=== PATIENT | female | born 1945 | race Caucasian/White ===

== ENCOUNTER 2019-06-05 17:43 | Emergency (ER) | payer MEDICARE, OTHER ==
[~2019-06-05] VITALS: Ht 165.1 cm; Wt 113.4 kg
[2019-06-05] MEDS ORDERED: EUTHYROX50 MC1 PO (21:36)
[2019-06-05] MEDS ORDERED: DULOXETINE HCL PO (21:36)
[2019-06-05] MEDS ORDERED: ATENOLOL25 MG PO (21:36)
[2019-06-05] MEDS ORDERED: TRAZ50 PO (21:36)
[2019-06-05] MEDS ORDERED: XANAX0.25 MG PO (21:36)
[2019-06-05] MEDS ORDERED: Zoloft100 MG PO (21:37)
[2019-06-05] MEDS ORDERED: ROSUVASTATIN CA10 MG PO (21:37)
[2019-06-05] MEDS ORDERED: Verapamil ER200 MG PO (21:37)
[2019-06-05] MEDS ORDERED: LISI5 PO (21:38)
[2019-06-05] MEDS ORDERED: PANTOPRAZOLE SO40 M2 PO (21:38)
== END 2019-06-05 22:00 | disposition home or self-care (01) ==
LOC: ER 17:43
DX: S01.01XA Laceration without foreign body of scalp, initial encounter (principal); Z88.1 Allergy status to other antibiotic agents; Z88.5 Allergy status to narcotic agent; Z91.048 Other nonmedicinal substance allergy status; M54.5 Low back pain; G89.29 Other chronic pain; W18.30XA Fall on same level, unspecified, initial encounter
CPT/HCPCS: 12001; 99283-25; A9270-GY

== ENCOUNTER → 2021-10-14 | Outpatient (CLI) | payer MEDICARE, OTHER ==
[~2021-10-14] MED LIST: ATENOLOL25 MG PO; DULOXETINE HCL PO; EUTHYROX50 MC1 PO; LISI5 PO; PANTOPRAZOLE SO40 M2 PO; ROSUVASTATIN CA10 MG PO; TRAZ50 PO; Verapamil ER200 MG PO; XANAX0.25 MG PO; Zoloft100 MG PO
[2021-10-14 17:38] LABS: BASOPHILS ABSOLUTE AUTO 0.03 K/mm3 (0.00-0.23); BASOPHILS PERCENT AUTO 0 % (0-2); EOSINOPHILS PERCENT AUTO 1 % (0-6); Hematocrit 40.2 % (33.0-51.0); Hemoglobin 12.7 g/dL (11.5-16.0); IMMATURE GRAN ABSOLUTE AUTO 0.03 K/mm3 (0.00-0.10); IMMATURE GRAN PERCENT AUTO 0 % (0-1); LYMPHOCYTES ABSOLUTE AUTO 2.54 K/mm3 (0.84-5.20); LYMPHOCYTES PERCENT AUTO 26 % (21-46); MONOCYTES ABSOLUTE AUTO 0.79 K/mm3 (0.16-1.47); MONOCYTES PERCENT AUTO 8 % (4-13); Mean Corpuscular HGB 27.7 pg (26.0-34.0); Mean Corpuscular HGB Conc 31.6 g/dL (31.5-36.5); Mean Corpuscular Volume 88 fL (80-100); Mean Platelet Volume 10.2 fL (9.1-12.4); NEUTROPHILS ABSOLUTE AUTO 6.29 K/mm3 (1.96-9.15); NEUTROPHILS PERCENT AUTO 64 % (41-73); Platelet Count 352 K/mm3 (150-400); RDW Coefficient Variation 15.7 % (11.7-14.2); RDW Standard Deviation 49.8 fL (35.1-46.3); Red Blood Cell Count 4.59 M/mm3 (3.80-5.20); White Blood Cell Count 9.78 K/mm3 (4.00-11.30)
[2021-10-14 18:43] LABS: CHOL/HDL RATIO 5.8; Cholesterol 260 mg/dL (50-200); Ferritin, Serum 6 ng/mL (8-252); HDL Cholesterol 45 mg/dL (>39); Iron Serum 60 ug/dL (50-170); LDL/HDL RATIO 3.8; Low Density Lipoprotein Chol 171 mg/dL (0-110); Total Iron Binding Capacity 460 ug/dL (250-450); Triglycerides 221 mg/dL (30-160); Very Low Density Lipoprot Chol 44 mg/dL (6-32)
== END | disposition home or self-care (01) ==
LOC: LAB SHORT 15:13
PROVIDERS: Family Medicine
DX: Z13.6 Encounter for screening for cardiovascular disorders (principal); E53.8 Deficiency of other specified B group vitamins; R53.83 Other fatigue
CPT/HCPCS: 80061; 82607; 82728; 82746; 83540; 83550; 85025

== ENCOUNTER 2024-10-14 12:22 | Emergency (ER) | payer MEDICARE, OTHER ==
[~2024-10-14] VITALS: Ht 160 cm; Wt 104.3 kg
[2024-10-14] MEDS ORDERED: Methyl Salicylate/Menth/Camph 57 GM TUBE TOP ONE (12:55)
[2024-10-14] MEDS ORDERED: FENO48 PO (17:55)
[2024-10-14] MEDS ORDERED: Cyclobenzaprine5 MG PO (17:56)
[2024-10-14] MEDS ORDERED: OXYB5 PO (17:56)
[2024-10-14] MEDS ORDERED: ESCI20 PO (17:56)
[2024-10-14] MEDS ORDERED: Isosorbide Mono30 MG PO (17:56)
[2024-10-14] MEDS ORDERED: METF500 PO (17:57)
[2024-10-14] MEDS ORDERED: GABA300 PO (17:57)
[2024-10-14] MEDS ORDERED: MERIBIN5 MG PO (17:58)
[2024-10-14] MEDS ORDERED: ESTRADIOL VAG (17:58)
[2024-10-14 19:47] LABS: BASOPHILS ABSOLUTE AUTO 0.02 K/mm3 (0.00-0.23); BASOPHILS PERCENT AUTO 0 % (0-2); EOSINOPHILS ABSOLUTE AUTO 0.03 K/mm3 (0.00-0.68); EOSINOPHILS PERCENT AUTO 0 % (0-6); Hematocrit 29.9 % (33.0-51.0); Hemoglobin 8.7 g/dL (11.5-16.0); IMMATURE GRAN ABSOLUTE AUTO 0.06 K/mm3 (0.00-0.10); IMMATURE GRAN PERCENT AUTO 1 % (0-1); LYMPHOCYTES ABSOLUTE AUTO 2.23 K/mm3 (0.84-5.20); LYMPHOCYTES PERCENT AUTO 22 % (21-46); MONOCYTES ABSOLUTE AUTO 0.90 K/mm3 (0.16-1.47); MONOCYTES PERCENT AUTO 9 % (4-13); Mean Corpuscular HGB Conc 29.1 g/dL (31.5-36.5); Mean Corpuscular Volume 88 fL (80-100); NEUTROPHILS ABSOLUTE AUTO 6.83 K/mm3 (1.96-9.15); NEUTROPHILS PERCENT AUTO 68 % (41-73); NRBC ABSOLUTE 0.00 K/mm3 (0.00-0.02); NRBC Auto 0.0 /100 WBC (0.0-0.2); Platelet Count 373 K/mm3 (150-400); RDW Coefficient Variation 14.9 % (11.7-14.2); RDW Standard Deviation 48.1 fL (35.1-46.3)
[2024-10-14 19:59] LABS: Anion Gap 9.0 mmol/L (3-11); Blood Urea Nitrogen 20.0 mg/dL (8-24); CO2, Blood 24.0 mmol/L (21-32); Calcium, Blood 9.4 mg/dL (8.5-10.1); Chloride, Blood 108.0 mmol/L (98-108); Creatinine, Blood 0.75 mg/dL (0.40-1.00); Glucose, Blood 155.0 mg/dL (70-99); Potassium, Blood 3.7 mmol/L (3.5-5.5); Sodium, Blood 137.0 mmol/L (136-145)
[2024-10-14 20:08] VITALS: BP 141/66
[2024-10-14] MEDS ORDERED: PERCOCET 10-321 EA13 PO (22:21)
[2024-10-14] MEDS ORDERED: OxyCODONE 10/Acetamin 325 TABLET PO ONE (22:25)
[2024-10-14] MEDS ORDERED: RX Prepack 6 Tabs Oxycodone 5mg UD ONE (23:15)
== END 2024-10-14 23:35 | disposition home or self-care (01) ==
LOC: ER 12:22
PROVIDERS: Student in an Organized Health Care Education/Training Program
DX: S32.029A Unspecified fracture of second lumbar vertebra, initial encounter for closed fracture (principal); W18.30XA Fall on same level, unspecified, initial encounter; D64.9 Anemia, unspecified; I10 Essential (primary) hypertension; E03.9 Hypothyroidism, unspecified; E11.40 Type 2 diabetes mellitus with diabetic neuropathy, unspecified; Z88.5 Allergy status to narcotic agent; Z88.1 Allergy status to other antibiotic agents; Z91.048 Other nonmedicinal substance allergy status; Z79.84 Long term (current) use of oral hypoglycemic drugs; Z79.899 Other long term (current) drug therapy; Z79.890 Hormone replacement therapy
CPT/HCPCS: 70450; 71260; 72100; 72125; 74177; 80048; 85025; 99284-25; A9270; Q9967

== ENCOUNTER 2024-11-04 15:10 | Emergency (ER) | payer MEDICARE, OTHER ==
[~2024-11-04] VITALS: Ht 160 cm; Wt 95.2 kg
[~2024-11-04 15:10] MED LIST changes: +Cyclobenzaprine5 MG PO; +ESCI20 PO; +ESTRADIOL VAG; +FENO48 PO; +GABA300 PO; +Isosorbide Mono30 MG PO; +MERIBIN5 MG PO; +METF500 PO; +OXYB5 PO; +PERCOCET 10-321 EA13 PO
[2024-11-04] MEDS ORDERED: Ketorolac Tromethamine 15mg Vial IV ONE (15:45)
[2024-11-04] MEDS ORDERED: Ondansetron HCl 2 MG / ML 2ML Vial IV ONE (15:45)
[2024-11-04 16:02] LABS: BASOPHILS ABSOLUTE AUTO 0.01 K/mm3 (0.00-0.23); BASOPHILS PERCENT AUTO 0 % (0-2); EOSINOPHILS ABSOLUTE AUTO 0.07 K/mm3 (0.00-0.68); EOSINOPHILS PERCENT AUTO 1 % (0-6); Hematocrit 35.8 % (33.0-51.0); Hemoglobin 11.1 g/dL (11.5-16.0); IMMATURE GRAN ABSOLUTE AUTO 0.05 K/mm3 (0.00-0.10); IMMATURE GRAN PERCENT AUTO 1 % (0-1); LYMPHOCYTES ABSOLUTE AUTO 1.46 K/mm3 (0.84-5.20); LYMPHOCYTES PERCENT AUTO 14 % (21-46); MONOCYTES ABSOLUTE AUTO 0.61 K/mm3 (0.16-1.47); MONOCYTES PERCENT AUTO 6 % (4-13); Mean Corpuscular HGB Conc 31.0 g/dL (31.5-36.5); Mean Corpuscular Volume 81 fL (80-100); NEUTROPHILS ABSOLUTE AUTO 8.13 K/mm3 (1.96-9.15); NEUTROPHILS PERCENT AUTO 79 % (41-73); NRBC ABSOLUTE 0.00 K/mm3 (0.00-0.02); NRBC Auto 0.0 /100 WBC (0.0-0.2); Platelet Count 460 K/mm3 (150-400); RDW Coefficient Variation 16.3 % (11.7-14.2); RDW Standard Deviation 46.9 fL (35.1-46.3)
[2024-11-04 16:23] LABS: Alanine Aminotransfer (ALT/SGP 23.0 U/L (12-78); Albumin, Blood 3.6 g/dL (3.4-5.0); Albumin/Globulin Ratio 0.9 (0.8-1.8); Anion Gap 16.0 mmol/L (3-11); Aspartate Aminotrans (AST/SGOT 22.0 U/L (12-37); Bilirubin, Total 1.1 mg/dL (0.1-1.0); Blood Urea Nitrogen 11.0 mg/dL (8-24); CO2, Blood 20.0 mmol/L (21-32); Calcium, Blood 9.9 mg/dL (8.5-10.1); Chloride, Blood 104.0 mmol/L (98-108); Creatinine, Blood 0.74 mg/dL (0.40-1.00); Globulin, Blood 3.8 g/dL (2.2-4.0); Glucose, Blood 154.0 mg/dL (70-99); Potassium, Blood 3.7 mmol/L (3.5-5.5); Sodium, Blood 136.0 mmol/L (136-145); Total Protein, Blood 7.4 g/dL (6.4-8.2)
[2024-11-04 17:35] LABS: Source, Urine Straight Cath
[2024-11-04 17:43] LABS: Bilirubin, Urine Neg (Neg); Color, Urine Yellow (P-Yellow); Glucose Qualitative, Urine Neg (Neg); Ketones, Urine 1+ (Neg); Leukocyte Esterase, Urine 3+ (Neg); Protein, Urine 2+ (Neg); Specific Gravity, Urine 1.010 (1.003-1.022); Urobilinogen, Urine NORM (Normal)
[2024-11-04 17:51] LABS: White Blood Cells, Urine TNTC /hpf (0-5)
[2024-11-04 17:52] LABS: Red Blood Cells, Urine 0-2 /hpf (0-2)
[2024-11-04] MEDS ORDERED: Metoclopramide HCl 5MG / ML 2ML Vial IV ONE (18:10)
[2024-11-04] MEDS ORDERED: HYDROmorphone HCl/Pf 1MG SYR IV ONE (18:10)
[2024-11-04] MEDS ORDERED: NS 1,000 ML IV SCH (18:10)
[2024-11-04] MEDS ORDERED: CefTRIAXone Sodium 1,000 MG in NS 100 ML IV ONE (18:15)
[2024-11-04 18:28] VITALS: BP 160/131
[2024-11-04] MEDS ORDERED: Magnesium Citrate 300 ML BTL PO ONE (19:55)
[2024-11-04] MEDS ORDERED: ONDA4ODT MM (20:07)
[2024-11-04] MEDS ORDERED: CEFP200 PO (20:07)
[2024-11-04] MEDS ORDERED: RX Prepack 2 Tabs Ondansetron ODT 4MG UD ONE (20:10)
== END 2024-11-04 20:35 | disposition home or self-care (01) ==
LOC: ER 15:10
PROVIDERS: Student in an Organized Health Care Education/Training Program
DX: S32.029A Unspecified fracture of second lumbar vertebra, initial encounter for closed fracture (principal); N39.0 Urinary tract infection, site not specified; K59.00 Constipation, unspecified; Z88.5 Allergy status to narcotic agent; Z79.899 Other long term (current) drug therapy; Z79.84 Long term (current) use of oral hypoglycemic drugs; I10 Essential (primary) hypertension; E11.21 Type 2 diabetes mellitus with diabetic nephropathy; X58.XXXA Exposure to other specified factors, initial encounter
CPT/HCPCS: 74177; 80053; 81001; 83690; 85025; 87077; 87086; 87186; 96365-59; 96375; 99283-25; A9270; J0696; J1171; J1885; J2405; J2765; J7030; Q9967

== ENCOUNTER 2024-11-07 16:55 | Emergency (ER) | payer MEDICARE, OTHER ==
[~2024-11-07] VITALS: Ht 162.6 cm; Wt 113.4 kg
[~2024-11-07 16:55] MED LIST changes: +CALAN SR240 M1 PO; +CEFP200 PO; -ESTRADIOL VAG; +ESTRADIOL10 MCG VAG; +ONDA4ODT MM; -OXYB5 PO; +Oxybutynin Chlo15 MG PO; -Verapamil ER200 MG PO
[2024-11-07] MEDS ORDERED: Ondansetron HCl 2 MG / ML 2ML Vial IV PRN (17:05)
[2024-11-07 17:23] LABS: BASOPHILS ABSOLUTE AUTO 0.02 K/mm3 (0.00-0.23); BASOPHILS PERCENT AUTO 0 % (0-2); EOSINOPHILS ABSOLUTE AUTO 0.14 K/mm3 (0.00-0.68); EOSINOPHILS PERCENT AUTO 2 % (0-6); Hematocrit 34.4 % (33.0-51.0); Hemoglobin 10.4 g/dL (11.5-16.0); IMMATURE GRAN ABSOLUTE AUTO 0.04 K/mm3 (0.00-0.10); IMMATURE GRAN PERCENT AUTO 0 % (0-1); LYMPHOCYTES ABSOLUTE AUTO 1.35 K/mm3 (0.84-5.20); LYMPHOCYTES PERCENT AUTO 14 % (21-46); MONOCYTES ABSOLUTE AUTO 0.62 K/mm3 (0.16-1.47); MONOCYTES PERCENT AUTO 7 % (4-13); Mean Corpuscular HGB Conc 30.2 g/dL (31.5-36.5); Mean Corpuscular Volume 83 fL (80-100); NEUTROPHILS ABSOLUTE AUTO 7.21 K/mm3 (1.96-9.15); NEUTROPHILS PERCENT AUTO 77 % (41-73); NRBC ABSOLUTE 0.00 K/mm3 (0.00-0.02); NRBC Auto 0.0 /100 WBC (0.0-0.2); Platelet Count 383 K/mm3 (150-400); RDW Coefficient Variation 16.3 % (11.7-14.2); RDW Standard Deviation 49.1 fL (35.1-46.3)
[2024-11-07 17:38] LABS: Prothrombin Time Results 11.3 Sec (9.7-11.5)
[2024-11-07 18:13] LABS: Alanine Aminotransfer (ALT/SGP 20.0 U/L (12-78); Albumin, Blood 3.7 g/dL (3.4-5.0); Albumin/Globulin Ratio 1.1 (0.8-1.8); Anion Gap 11.0 mmol/L (3-11); Aspartate Aminotrans (AST/SGOT 20.0 U/L (12-37); Bilirubin, Total 0.9 mg/dL (0.1-1.0); Blood Urea Nitrogen 8.0 mg/dL (8-24); CO2, Blood 24.0 mmol/L (21-32); Calcium, Blood 9.8 mg/dL (8.5-10.1); Chloride, Blood 106.0 mmol/L (98-108); Creatinine, Blood 0.74 mg/dL (0.40-1.00); Globulin, Blood 3.4 g/dL (2.2-4.0); Glucose, Blood 140.0 mg/dL (70-99); Potassium, Blood 3.8 mmol/L (3.5-5.5); Sodium, Blood 137.0 mmol/L (136-145); Total Protein, Blood 7.1 g/dL (6.4-8.2)
[2024-11-07] MEDS ORDERED: OXYCODONE-ACET1 EAC2 PO (19:34)
[2024-11-07] MEDS ORDERED: Nitrofurantoin100 M1 PO (19:35)
[2024-11-07 20:00] VITALS: BP 246/108
[2024-11-07] MEDS ORDERED: Ondansetron HCl 2 MG / ML 2ML Vial IV ONE (20:20)
[2024-11-07] MEDS ORDERED: PROBIOTIC1 EA14 PO (20:34)
== END 2024-11-07 21:03 | disposition home or self-care (01) ==
LOC: ER 16:55
PROVIDERS: Emergency Medicine
DX: K52.1 Toxic gastroenteritis and colitis (principal); T36.95XA Adverse effect of unspecified systemic antibiotic, initial encounter; E03.9 Hypothyroidism, unspecified; I10 Essential (primary) hypertension; E11.40 Type 2 diabetes mellitus with diabetic neuropathy, unspecified; Z88.1 Allergy status to other antibiotic agents; Z88.5 Allergy status to narcotic agent; Z91.048 Other nonmedicinal substance allergy status; Z79.899 Other long term (current) drug therapy
CPT/HCPCS: 80053; 85025; 85610; 85730; 86850; 86900; 86901; 93005; 93010; 96374; 96376; 99284-25; A6590; J2405

== ENCOUNTER 2024-11-09 14:05 | Inpatient (IN) | payer MEDICARE, OTHER ==
[~2024-11-09] VITALS: Ht 162.6 cm; Wt 97.5 kg
[~2024-11-09 14:05] MED LIST changes: +Nitrofurantoin100 M1 PO; +OXYCODONE-ACET1 EAC2 PO; +PROBIOTIC1 EA14 PO
[2024-11-09] MEDS ORDERED: Ondansetron HCl 2 MG / ML 2ML Vial IV ONE (14:15)
[2024-11-09 15:16] LABS: BASOPHILS ABSOLUTE AUTO 0.02 K/mm3 (0.00-0.23); BASOPHILS PERCENT AUTO 0 % (0-2); EOSINOPHILS ABSOLUTE AUTO 0.11 K/mm3 (0.00-0.68); EOSINOPHILS PERCENT AUTO 1 % (0-6); Hematocrit 34.5 % (33.0-51.0); Hemoglobin 10.6 g/dL (11.5-16.0); IMMATURE GRAN ABSOLUTE AUTO 0.02 K/mm3 (0.00-0.10); IMMATURE GRAN PERCENT AUTO 0 % (0-1); LYMPHOCYTES ABSOLUTE AUTO 1.59 K/mm3 (0.84-5.20); LYMPHOCYTES PERCENT AUTO 19 % (21-46); MONOCYTES ABSOLUTE AUTO 0.59 K/mm3 (0.16-1.47); MONOCYTES PERCENT AUTO 7 % (4-13); Mean Corpuscular HGB Conc 30.7 g/dL (31.5-36.5); Mean Corpuscular Volume 83 fL (80-100); NEUTROPHILS ABSOLUTE AUTO 6.27 K/mm3 (1.96-9.15); NEUTROPHILS PERCENT AUTO 73 % (41-73); NRBC ABSOLUTE 0.00 K/mm3 (0.00-0.02); NRBC Auto 0.0 /100 WBC (0.0-0.2); Platelet Count 381 K/mm3 (150-400); RDW Coefficient Variation 16.4 % (11.7-14.2); RDW Standard Deviation 49.3 fL (35.1-46.3)
[2024-11-09 15:39] LABS: Alanine Aminotransfer (ALT/SGP 23.0 U/L (12-78); Albumin, Blood 3.6 g/dL (3.4-5.0); Albumin/Globulin Ratio 1.1 (0.8-1.8); Anion Gap 12.0 mmol/L (3-11); Aspartate Aminotrans (AST/SGOT 17.0 U/L (12-37); Bilirubin, Total 0.9 mg/dL (0.1-1.0); Blood Urea Nitrogen 6.0 mg/dL (8-24); CO2, Blood 23.0 mmol/L (21-32); Calcium, Blood 10.0 mg/dL (8.5-10.1); Chloride, Blood 106.0 mmol/L (98-108); Creatinine, Blood 0.77 mg/dL (0.40-1.00); Globulin, Blood 3.3 g/dL (2.2-4.0); Glucose, Blood 132.0 mg/dL (70-99); Potassium, Blood 3.5 mmol/L (3.5-5.5); Sodium, Blood 137.0 mmol/L (136-145); Total Protein, Blood 6.9 g/dL (6.4-8.2)
[2024-11-09] MEDS ORDERED: NS 1,000 ML IV SCH ×2 (17:10→19:10)
[2024-11-09] MEDS ORDERED: HYDROmorphone HCl/Pf 1MG SYR IV ONE (17:10)
[2024-11-09] MEDS ORDERED: Metoclopramide HCl 5MG / ML 2ML Vial IV ONE (17:10)
[2024-11-09] MEDS ORDERED: Labetalol HCL 5 MG/ML 4ML Injection (Single Dose) IV PRN (19:05)
[2024-11-09] MEDS ORDERED: HYDROmorphone HCl/Pf 1MG SYR IV PRN (19:15)
[2024-11-09] MEDS ORDERED: Metoclopramide HCl 5MG / ML 2ML Vial IV PRN (19:15)
[2024-11-09] MEDS ORDERED: Magnesium Hydroxide Conc 10 ML UDC PO PRN (19:15)
[2024-11-09] MEDS ORDERED: Ondansetron HCl 2 MG / ML 2ML Vial IV PRN (19:15)
[2024-11-09] MEDS ORDERED: FLU VACC TS2025(65UP)/MF59C/PF 45 MCG/0.5 ML SYRINGE IM SCH (19:20)
[2024-11-09] MEDS ORDERED: Ketorolac Tromethamine 15mg Vial IV PRN (19:35)
[2024-11-09] MEDS ORDERED: Ketorolac Tromethamine 15mg Vial IV ONE (20:00)
[2024-11-09] MEDS ORDERED: HydrALAZINE HCl 20 MG / ML 1ML Vial IV ONE (21:00)
[2024-11-09] MEDS ORDERED: Doxycycline Hyclate 100 MG in Dextrose 5% 250 ML IV SCH (21:00)
[2024-11-09] MEDS ORDERED: Lactobacil 2-S.Thermo-Bifido 1 1 Cap PO SCH (21:00)
[2024-11-09 21:32] VITALS: BP 232/83
[2024-11-09 22:33] VITALS: BP 227/76
[2024-11-10] VITALS (11 sets, daily range): BP systolic 101–208; BP diastolic 51–89
--- NOTE | 2024-11-10 04:25 | NUR ---
PATIENT ADMITTED FROM ER VIA STRETCHER, ORIENTED TIMES 4, COMPLAINS OF PAIN WHILE MOVING, PUREWICK HOOKED UP, EDUCATED ON USE, VITALS SIGNS MONITORED, BLOOD PRESSURE ELEVATED AND TREATED PER ORDERS, ADMISSION ASSESSMENT COMPLETED, LUNGS CLEAR DIMINISHED TO BASES BILATERALLY, ANTIBIOTICS COMPLETED, NS INTIATED PER ORDER, CALL LIGHT IN REACH, EDUCATED ON FALL PRECAUTIONS, CALL LIGHT IN REACH, BED IN LOW AND OCKED POSITION.
[2024-11-10 05:53] LABS: Hematocrit 32.4 % (33.0-51.0); Hemoglobin 9.6 g/dL (11.5-16.0); Mean Corpuscular HGB Conc 29.6 g/dL (31.5-36.5); Mean Corpuscular Volume 86 fL (80-100); NRBC ABSOLUTE 0.00 K/mm3 (0.00-0.02); NRBC Auto 0.0 /100 WBC (0.0-0.2); Platelet Count 294 K/mm3 (150-400); RDW Coefficient Variation 16.6 % (11.7-14.2); RDW Standard Deviation 51.8 fL (35.1-46.3)
[2024-11-10 06:13] LABS: Anion Gap 8.0 mmol/L (3-11); Blood Urea Nitrogen 8.0 mg/dL (8-24); CO2, Blood 27.0 mmol/L (21-32); Calcium, Blood 8.6 mg/dL (8.5-10.1); Chloride, Blood 106.0 mmol/L (98-108); Creatinine, Blood 0.74 mg/dL (0.40-1.00); Glucose, Blood 136.0 mg/dL (70-99); Potassium, Blood 3.2 mmol/L (3.5-5.5); Sodium, Blood 138.0 mmol/L (136-145)
[2024-11-10] MEDS ORDERED: Insulin Human Lispro 100 Units/ML 3ML Syringe SC SCH (07:30)
[2024-11-10] MEDS ORDERED: Enoxaparin 40 MG/0.4 ML SYR SC SCH (09:00)
[2024-11-10] MEDS ORDERED: Isosorbide Mononitrate 30 MG TABCR PO SCH (09:00)
[2024-11-10] MEDS ORDERED: Fenofibrate 67 MG Cap PO SCH (09:00)
[2024-11-10 10:27] LABS: Source, Urine Clean Catch
[2024-11-10 10:33] LABS: Bilirubin, Urine Neg (Neg); Color, Urine Yellow (P-Yellow); Glucose Qualitative, Urine Neg (Neg); Ketones, Urine Neg (Neg); Leukocyte Esterase, Urine 1+ (Neg); Protein, Urine 2+ (Neg); Specific Gravity, Urine 1.025 (1.003-1.022); Urobilinogen, Urine NORM (Normal)
[2024-11-10 10:39] LABS: Red Blood Cells, Urine Not Seen /hpf (0-2)
--- NOTE | 2024-11-10 13:12 | NUR ---
NOTE DR. MARTEL NOTIFIED PT HAS Q4 HOUR BP CHECK ORDERED AND NO TELE. DR. MARTEL REPORTED "HAVE AN ADMIT, WILL LOOK INTO IT." PT BLOOD PRESSURE AT 1139 WAS 193/89. THIS RN WENT TO BREAK, BREAK RN NOTIFIED ABOUT BP. PT HAS PRN BP MEDS ORDERED. BREAK RN REPORTED GIVING HYDRALAZINE AND TRANDATE AT 1222. THIS RN ASSESSED PT. PT SITTING UPRIGHT IN CHAIR REPORTED "JUST ATE LUNCH, FEEL SWEATY AND DIZZY NO CHEST PAIN." THIS RN NOTIFIED MANUFACTURING SUPERVISOR. BP WAS 101/55. MANUFACTURING SUPERVISOR AND THIS RN HELP PT TO BED. PT IN [place] POSITION. RETOOK BP, BP NOW 127/55. NS CONT FLUIDS STARTED AT 100ML/HR.
--- NOTE | 2024-11-10 13:27 | NUR ---
NOTE REPORTED BP AND SYMPTOMS TO DR. MARTEL. DR. MARTEL REPORTED "KEEP HER ON BEDREST AND CHECK HER BP LATER. CONTINUE FLUIDS. WILL PUT PT ON TELE." PT IN BED, BED IN LOWEST POSITION, CALL LIGHT IN REACH. PT ON 2L VIA N/C OF O2. PT SPO2 ON ROOM AIR IS 89% REPORTED TO DR. FERMIN REQUIRING O2.
[2024-11-10] MEDS ORDERED: NS 1,000 ML IV SCH (14:00)
--- NOTE | 2024-11-10 14:05 | NUR ---
NOTE PT ON TELE, TELE REPORTS SB AT 59 BPM. BLOOD PRESSURE 128/65. PT AT 96% SPO2 ON ROOM AIR. PT IN BED. PERWICK IN PLACE. BED IN LOWEST POSITION, CALL LIGHT IN REACH. FLUIDS INFUSING.
--- NOTE | 2024-11-10 18:38 | NUR ---
SHIFT SUMMARY PT A&OX4. PT ADMITTED DUE TO HYPERTENSIVE URGENCY. LAST BP WAS 128/65. PT SPO2 IS 96% ON ROOM AIR. PT REPORTED "NO LONGER FEELING DIZZY." PT REPORTS NO CHEST PAIN. PT REPORTS BACK PAIN DUE TO COMPRESSION FX. PAIN MANAGED PER EMAR. PT REPORTS FEEL MORE RELIEF WITH DILAUDID. PT REPORTS LIMITED MOBILITY ON L SHOULDER DUE TO FX LONG TIME AGO. PT REPORTS NAUSEA, AND MEDICATED PER EMAR. PT REPORTS FEEL MORE RELIEF WITH REGLAN THAN ZOFRAN. PT IS AC BLOOD SUGARS, MANAGED PER EMAR. PT STILL WITHOUT BM. PT ON TELE. NO TELE REPORTS SINCE ON TELE. PT ON PERChamateCK DUE TO PAIN/EPISODE OF DIZZINESS EARLIER. PT GOT POTASSIUM REPLACED IV TODAY. PT HAS NS RUNNING AT 100ML/HR. PT WORKED WITH PHYSICAL THERAPY TODAY. PT IN BED, BED IN LOWEST POSITION, CALL LIGHT IN REACH.
[2024-11-11] VITALS (9 sets, daily range): BP systolic 136–198; BP diastolic 65–100
--- NOTE | 2024-11-11 00:34 | NUR ---
CALL PLACED TO MD: CALL PLACED TO ABOUT BP OF 198/100. PROVIDER TO REVIEW CHART AND PUT IN ORDERS.
--- NOTE | 2024-11-11 01:45 | NUR ---
CALL PLACED TO PROVIDER: CALL PLACED TO DR. JACKSON ABOUT BP OF 194/80. PROVIDER GAVE AN ORDER OVER THE PHONE TO STOP CONTINOUS FLUIDS AT BEDSIDE AND PROVIDER TO REVIEW CHART AND PUT IN ORDER.
--- NOTE | 2024-11-11 04:47 | NUR ---
SHIFT SUMMARY: PT IS AOX4 AND ABLE TO MAKE NEEDS KNOWN. PT C/O OF BURING IN VAGINAL AREA WHERE PUREWIC WAS. AREA ASSESSED AND PUREWIC REMOVED. PT STATES AREA DOESNT BURN BAD WITHOUT THE PUREWIC IN PLACE. SEVERAL CALLS PLACED TO PROVIDER (SEE PREVIOUS NOTES) ABOUT HIGH BLOOD PRESSURE. ORDERS PLACED AND COMPLETED. PT IS SBA TO BTHROOM.
--- NOTE | 2024-11-11 05:06 | NUR ---
CALL PLACED TO PROVIDER: CALL PLACED TO DR. JACKSON REGARDING PTS BP. MD TO REVIEW CHART AND PLACE ORDERS.
[2024-11-11 05:21] LABS: BASOPHILS ABSOLUTE AUTO 0.02 K/mm3 (0.00-0.23); BASOPHILS PERCENT AUTO 0 % (0-2); EOSINOPHILS ABSOLUTE AUTO 0.23 K/mm3 (0.00-0.68); EOSINOPHILS PERCENT AUTO 2 % (0-6); Hematocrit 34.4 % (33.0-51.0); Hemoglobin 10.1 g/dL (11.5-16.0); IMMATURE GRAN ABSOLUTE AUTO 0.04 K/mm3 (0.00-0.10); IMMATURE GRAN PERCENT AUTO 0 % (0-1); LYMPHOCYTES ABSOLUTE AUTO 2.16 K/mm3 (0.84-5.20); LYMPHOCYTES PERCENT AUTO 22 % (21-46); MONOCYTES ABSOLUTE AUTO 0.88 K/mm3 (0.16-1.47); MONOCYTES PERCENT AUTO 9 % (4-13); Mean Corpuscular HGB Conc 29.4 g/dL (31.5-36.5); Mean Corpuscular Volume 86 fL (80-100); NEUTROPHILS ABSOLUTE AUTO 6.67 K/mm3 (1.96-9.15); NEUTROPHILS PERCENT AUTO 67 % (41-73); NRBC ABSOLUTE 0.00 K/mm3 (0.00-0.02); NRBC Auto 0.0 /100 WBC (0.0-0.2); Platelet Count 372 K/mm3 (150-400); RDW Coefficient Variation 16.8 % (11.7-14.2); RDW Standard Deviation 52.5 fL (35.1-46.3)
[2024-11-11 05:38] LABS: Anion Gap 10.0 mmol/L (3-11); Blood Urea Nitrogen 10.0 mg/dL (8-24); CO2, Blood 23.0 mmol/L (21-32); Calcium, Blood 9.1 mg/dL (8.5-10.1); Chloride, Blood 110.0 mmol/L (98-108); Creatinine, Blood 0.74 mg/dL (0.40-1.00); Glucose, Blood 159.0 mg/dL (70-99); Potassium, Blood 3.9 mmol/L (3.5-5.5); Sodium, Blood 139.0 mmol/L (136-145)
[2024-11-11] MEDS ORDERED: OxyCODONE 10/Acetamin 325 TABLET PO PRN (13:10)
[2024-11-11] MEDS ORDERED: Fluconazole 150 MG TAB PO SCH (13:15)
--- NOTE | 2024-11-11 17:59 | NUR ---
SHIFT SUMMARY A&OX4. PAIN WITH AMBULATION, BUT WALKING TO BATHROOM WITH FWW AND STAND BY ASSIST, MOSTLY CONTINENT WITH HISTORY OF URGE INCONTINENCE. ON RA. USES CALL LIGHT APPROPRIATELY, COOPERATIVE WITH CARE. BED IN LOWEST POSITION, ABLE TO MAKE NEEDS KNOWN.
[2024-11-12] VITALS (10 sets, daily range): BP systolic 151–196; BP diastolic 67–95
[2024-11-12 05:42] LABS: BASOPHILS ABSOLUTE AUTO 0.01 K/mm3 (0.00-0.23); BASOPHILS PERCENT AUTO 0 % (0-2); EOSINOPHILS ABSOLUTE AUTO 0.18 K/mm3 (0.00-0.68); EOSINOPHILS PERCENT AUTO 3 % (0-6); Hematocrit 30.7 % (33.0-51.0); Hemoglobin 8.9 g/dL (11.5-16.0); IMMATURE GRAN ABSOLUTE AUTO 0.02 K/mm3 (0.00-0.10); IMMATURE GRAN PERCENT AUTO 0 % (0-1); LYMPHOCYTES ABSOLUTE AUTO 1.77 K/mm3 (0.84-5.20); LYMPHOCYTES PERCENT AUTO 27 % (21-46); MONOCYTES ABSOLUTE AUTO 0.65 K/mm3 (0.16-1.47); MONOCYTES PERCENT AUTO 10 % (4-13); Mean Corpuscular HGB Conc 29.0 g/dL (31.5-36.5); Mean Corpuscular Volume 87 fL (80-100); NEUTROPHILS ABSOLUTE AUTO 3.94 K/mm3 (1.96-9.15); NEUTROPHILS PERCENT AUTO 60 % (41-73); NRBC ABSOLUTE 0.00 K/mm3 (0.00-0.02); NRBC Auto 0.0 /100 WBC (0.0-0.2); Platelet Count 283 K/mm3 (150-400); RDW Coefficient Variation 16.8 % (11.7-14.2); RDW Standard Deviation 53.7 fL (35.1-46.3)
--- NOTE | 2024-11-12 06:04 | NUR ---
SHIFT SUMMARY; PT A/O X3- SELF, PLACE, TIME; PLEASANT, AND COOPERATIVE WITH CARE. PT HAS NOT HAD BM TONIGHT, PER LAST RN REPORT, NO BM X 5 DAYS. PUREWICK PUT IN PLACE FOR URINE INCONTINANCE AND PT IS WEARING ATTENDS. ATTENDS CHANGED WHEN SOILED WITH URINE. POWDER APPLIED TO PANIS WHILE CHANGING ATTENDS. PT CONTINUES TO BE HYPERTENSIVE W/ SYS BPS BELOW 180 FOR MOST OF THE NIGHT, HOWEVER LABETOLOL GIVEN AROUND 0420 DUE TO ELEVATED SYS AT 196. BP RECHECKED 30 MINS LATER AND BP SYS REMAINS ELEVATED. DR. JACKSON PAGED AND NOTIFIED. DR. JACKSON STATES THAT CHART IS CURRENTLY BEING REVIEWED AND BP MEDICATION WILL BE ADDED. MEDICATION APRESOLINE 50MG PO PRN SYS BP >170. MEDICATION GIVEN. IV FLUIDS D/C PER ORDER. PT ON TELE AT NSR AT 73 BPM. CALL LIGHT WITHIN REACH AND BED IN LOW POSITION.
[2024-11-12 06:09] LABS: Anion Gap 6.0 mmol/L (3-11); Blood Urea Nitrogen 10.0 mg/dL (8-24); CO2, Blood 28.0 mmol/L (21-32); Calcium, Blood 9.2 mg/dL (8.5-10.1); Chloride, Blood 108.0 mmol/L (98-108); Creatinine, Blood 0.75 mg/dL (0.40-1.00); Glucose, Blood 123.0 mg/dL (70-99); Potassium, Blood 3.7 mmol/L (3.5-5.5); Sodium, Blood 138.0 mmol/L (136-145)
[2024-11-12 09:02] LABS: Thyroid Stimulating Hormone 2.54 uIU/mL (0.360-4.800)
--- NOTE | 2024-11-12 15:34 | NUR ---
CALLED [facility]- PT CONVEYS FRUSTRATION WITH HER LACK OF HER FEELING LIKE SHE HAS IMPROVED IN HER HEALTH AT ALL.SHE ADMITS TO FELLING DOWN, AND LONELY AT THIS TIME. PROVIDED THERAPUDIC LISTENING, PAIN MEDS TO MANAGE HER CURRENT PAIN. CALLED MARI IN [facility] AND ASKED IF THEY COULD PAY HER A VISIT. SHE PERKED UP A LITTLE WHEN A VISIT WAS OFFERED TO HER.
--- NOTE | 2024-11-12 16:24 | NUR ---
The patient is lying in bed and alert. She tells me about her medical history and current problems. She then shares about the of her sp, Mac, 13 yrs ago. She talks about her current family friend support, her Buddhism didier and is tearful about her current situation. I provided gentle dormitory counselor and prayer. She responded well and showed signs of an elevation in mood.
--- NOTE | 2024-11-12 19:14 | NUR ---
SHIFT SUMMARY- PT HAS A GOOD VISIT WITH SPIRITUAL CARE (PER PT STATEMENT) SHE IS STILL EASY TO TEAR UP A BIT AT THE END OF THE SHIFT. SHE WAS MEDICATED FOR PAIN EARLIER IN THE DAY AND IT SEEMED TO WORK WELL. THE PT HOME MEDS HAVE NOT BEEN RECONCILLED YET. THIS RN CALLED THE PHARMACY AND THEY FAXED THE MED REC OVER. MED REC WAS NOT A COMPLETE MED REC. 1 PAGE WAS MISSING. NIGHT RN AWARE THE MED REC WAS NOT COMPLETED. BEDSIDE REPORT COMPLETED WITH NIGHT RN. PT SITTING UP IN THE CHAIR AT THE TIME OF REPORT. SHE REQUESTED A PUREWICK PLACED TONIGHT SO SHE CAN REST AND SLEEP THROUGH THE NIGHT.
[2024-11-13] VITALS (7 sets, daily range): BP systolic 143–193; BP diastolic 67–87
--- NOTE | 2024-11-13 03:37 | NUR ---
SHIFT SUMMARY: PT IS AOX3 WITH SOME SLIGHT CONFUSION THIS EVENING. AT THE START OF SHIFT THE PT KNEW WHERE SHE WAS AND THEN IN THE MIDDLE OF SHIFT THE PT GOT OUT OF BED AND CAME INTO THE HALLWAY STATING SHE IS WAITING FOR SOMEONE TO "TUCK HER IN". PT WAS ASKED WHERE SHE WAS AND COULD NOT STATE WHERE SHE WAS AT. PT REIRECTED BACK TO BED AND SLEPT THE REST OF THE SHIFT. PT MEDICATED PER EMAR. PT IS CONT AND IS ONE PER AST TO THE BTHRM. NO ACUTE CHANGES THIS SHIFT.
[2024-11-13 05:27] LABS: BASOPHILS ABSOLUTE AUTO 0.02 K/mm3 (0.00-0.23); BASOPHILS PERCENT AUTO 0 % (0-2); EOSINOPHILS ABSOLUTE AUTO 0.10 K/mm3 (0.00-0.68); EOSINOPHILS PERCENT AUTO 1 % (0-6); Hematocrit 31.3 % (33.0-51.0); Hemoglobin 9.2 g/dL (11.5-16.0); IMMATURE GRAN ABSOLUTE AUTO 0.04 K/mm3 (0.00-0.10); IMMATURE GRAN PERCENT AUTO 0 % (0-1); LYMPHOCYTES ABSOLUTE AUTO 1.57 K/mm3 (0.84-5.20); LYMPHOCYTES PERCENT AUTO 16 % (21-46); MONOCYTES ABSOLUTE AUTO 0.87 K/mm3 (0.16-1.47); MONOCYTES PERCENT AUTO 9 % (4-13); Mean Corpuscular HGB Conc 29.4 g/dL (31.5-36.5); Mean Corpuscular Volume 86 fL (80-100); NEUTROPHILS ABSOLUTE AUTO 7.25 K/mm3 (1.96-9.15); NEUTROPHILS PERCENT AUTO 74 % (41-73); NRBC ABSOLUTE 0.00 K/mm3 (0.00-0.02); NRBC Auto 0.0 /100 WBC (0.0-0.2); Platelet Count 286 K/mm3 (150-400); RDW Coefficient Variation 17.1 % (11.7-14.2); RDW Standard Deviation 53.7 fL (35.1-46.3)
[2024-11-13 05:47] LABS: Anion Gap 6.0 mmol/L (3-11); Blood Urea Nitrogen 16.0 mg/dL (8-24); CO2, Blood 28.0 mmol/L (21-32); Calcium, Blood 9.8 mg/dL (8.5-10.1); Chloride, Blood 108.0 mmol/L (98-108); Creatinine, Blood 0.76 mg/dL (0.40-1.00); Glucose, Blood 125.0 mg/dL (70-99); Potassium, Blood 4.3 mmol/L (3.5-5.5); Sodium, Blood 138.0 mmol/L (136-145)
[2024-11-13] MEDS ORDERED: CefTRIAXone Sodium 1,000 MG in NS 100 ML IV SCH (11:00)
[2024-11-13] MEDS ORDERED: Lactobacil 2-S.Thermo-Bifido 1 1 Cap PO SCH (11:00)
--- NOTE | 2024-11-13 17:56 | NUR ---
SHIFT SUMMARY- PT ALERT AND ORIENTED. PT PAIN HAS APPEARED WELL MANAGED THIS SHIFT, SHE WAS MEDICATED ONE TIME. THE PT STATES SHE IS LOOKING FORWARD TO GOING TO SNF TO GET STRONGER. SHE HAS BEEN UP TO THE BATHROOM AND SHE WORKED WITH PHYSICAL THERAPY AND WALKED IN THE HALLWAY. PT IS CURRENTLY IN BED CALL LIGHT IN REACH NO S&S OF DISTRESS NOTED AT THIS TIME. WILL PASS ON TO NIGHT RN IN BEDSIDE REPORT.
[2024-11-14 00:16] VITALS: BP 156/62
[2024-11-14 07:34] VITALS: BP 116/59
--- NOTE | 2024-11-14 07:44 | NUR ---
SHIFT SUMMARY; PATIENT SLEPT IN LONG INTERVALS. ABLE TO SLEEP WITH PUREWICK KEEPING HER DRY, TELE SR 70. ELEVATED BP X 2. PAIN MED AT HS.
[2024-11-14 11:21] VITALS: BP 109/55
[2024-11-14] MEDS ORDERED: ACET500 PO (15:15)
[2024-11-14] MEDS ORDERED: CALCITONIN-SAL3.7 M5 (15:19)
[2024-11-14] MEDS ORDERED: DOCU100 PO (15:22)
[2024-11-14] MEDS ORDERED: FENOFIBRATE PO (15:25)
[2024-11-14] MEDS ORDERED: EUTHYROX50 MCG PO (15:26)
[2024-11-14] MEDS ORDERED: SENNA LAXATIVE8.6 MG PO (15:26)
[2024-11-14 15:36] VITALS: BP 141/62
[2024-11-14 16:29] LABS: ALDOSTERONE <3.0 ng/dL; ALDOSTERONE/RENINACTIVITY CALC <30.0 ratio (<=25.0); RENIN ACTIVITY 0.1 ng/mL/hr
--- NOTE | 2024-11-14 17:32 | NUR ---
PATIENT D/C'D TO [facility] VIA [facility]C TRANSPORT. DC PACKET GIVEN TO WAREHOUSE ASSOCIATE WITH HARD SCRIPT FOR OXYCODONE. BELONGINGS SENT WITH PATIENT. REPORTS CALLED TO ERYN NURSE AT [facility]. PATIENT DENIES ANY FURTHER QUESTIONS OR CONCERNS.
[2024-11-14] MEDS ORDERED: ESTRADIOL VAGINAL 10 MCG XX SCH (21:00)
== END 2024-11-14 17:36 | DRG 690 ==
LOC: ER 14:05 → ERHOLD 14:06 → MEDS 14:06 → ER 14:06 → MEDS 21:14 → ERHOLD 21:14 → MEDS 11-10 15:56
PROVIDERS: Emergency Medicine; Family Medicine; Nurse Practitioner Acute Care; ADMIT Student in an Organized Health Care Education/Training Program
DX: N39.0 Urinary tract infection, site not specified (principal); I16.0 Hypertensive urgency; B96.20 Unspecified Escherichia coli [E. coli] as the cause of diseases classified elsewhere; K59.00 Constipation, unspecified; E11.9 Type 2 diabetes mellitus without complications; E78.5 Hyperlipidemia, unspecified; F32.A Depression, unspecified; E03.9 Hypothyroidism, unspecified; Z88.5 Allergy status to narcotic agent; Z91.048 Other nonmedicinal substance allergy status; Z88.8 Allergy status to other drugs, medicaments and biological substances; W18.30XA Fall on same level, unspecified, initial encounter
CPT/HCPCS: 36415; 74018; 80048; 80053; 81001; 82088; 82947; 83036; 83690; 83880; 84244; 84439; 84443; 84481; 85025; 85027; 87086; 93306; 93975; 96361; 96365; 96372; 96375; 96376; 97110; 97116; 97162; 97165; 97530; 97535; 99285-25; A6590; A9270; G0378; J0696; J1171; J1650; J1885; J2405; J2765; J3480; J7030; J7050; J7060